=== PATIENT | male | born 1990 | race Caucasian/White ===

== ENCOUNTER 2023-12-13 13:08 | Emergency (ER) | payer OTHER ==
[~2023-12-13] VITALS: Ht 180.3 cm; Wt 75.0 kg
[2023-12-13 15:37] VITALS: BP 126/82
[2023-12-13] MEDS: KETOROLAC TROMETH 30 MG/ML 1ML VIAL IM ONE (15:56)
[2023-12-13 16:13] VITALS: PULSE 68; RESP 16; O2SAT 100
[2023-12-13] MEDS ORDERED: HYDR-4902 PO (16:18)
== END 2023-12-13 16:42 | disposition home or self-care (01) ==
LOC: ER 13:08
DX: S92.252A Displaced fracture of navicular [scaphoid] of left foot, initial encounter for closed fracture (principal); W22.8XXA Striking against or struck by other objects, initial encounter; Y93.89 Activity, other specified; Y92.89 Other specified places as the place of occurrence of the external cause; Y99.8 Other external cause status
CPT/HCPCS: 29515; 73610; 73630; 96372; 99284; J1885

== ENCOUNTER 2025-02-19 13:08 | Emergency (ER) | payer SELFPAY ==
[~2025-02-19] VITALS: Ht 180.3 cm; Wt 77.2 kg
[~2025-02-19 13:08] MED LIST: HYDR-4902 PO
[2025-02-19 13:18] VITALS: TEMP 98.2
[2025-02-19] MEDS: DONNATAL 5ml ORAL Elix (BELLADONNA ALK-PHENOBARB) PO ONE (13:30)
[2025-02-19] MEDS: MAALOX PLUS or MAALOX 30 ML PO ONE (13:30)
[2025-02-19] MEDS: PROCHLORPERAZINE MALEATE 10 MG TAB PO ONE (13:30)
[2025-02-19] MEDS: LIDOCAINE VISCOUS 2% 15ML UD PO ONE (13:30)
--- NOTE | 2025-02-19 13:33 | ED.PDOC ---
GI ASSESSMENT HPI Comments 34-year-old male with PMHx GERD presents with a chief complaint of abdominal pain with associated nausea and vomiting. Patient states that his pain is localized to his epigastric region, nonradiating, describes as cramping, and rates his pain a 8/10. Patient mentions that he has been feeling nauseated, and has had one episode of vomiting. Patient is not actively vomiting at assessment. Chief Complaint: Abdominal Pain Time Seen by MD: 13:23 Primary Care Provider: NONE Reviewed Notes: Medications, Allergies Allergies: Coded Allergies: NO KNOWN ALLERGIES (Unverified , 02/19/25) Home Meds Active Scripts Hydrocodone-Acetaminophen (Hydrocodone Bitartrate/AC 5-325 mg) 1 Tab Tab, 1 TAB PO Q6HP PRN for 5 Days, #12 TAB Prov:URSULA FARIA CYNDI 12/13/23 Information Source: Patient Mode of Arrival: Ambulatory Timing: Hours Duration: Since onset Prehospital treatment: None Quality: Aching Vomitus: Food Particles Stool: Normal Severity: Moderate Recent: None Recent Hx of: None Pain Location: Epigastric Associated sign and symptoms: Nausea, Vomiting, Abdominal Pain Past Medical History PAST MEDICAL HISTORY: Denies Surgical History: Denies all surgeries Family History Family History: Reviewed,noncontributory to illness, No family hx of Cancer, No family hx of DM, No family hx of Heart cesar, No family hx of HTN, No family hx ofKidney cesar, No family hx of Liver cesar, No family hx of Lung cesar, No family hx of Stroke Social History Smoker: Non-Smoker Alcohol: Denies ETOH Use Drugs: Denies Drug Use Constitutional: denies: chills, diaphoresis, fatigue, fever, malaise, sweats, weakness, others EENTM: denies: blurred vision, double vision, ear bleeding, ear discharge, ear drainage, ear pain, ear ringing, eye pain, eye redness, hearing loss, mouth pain, mouth swelling, nasal discharge, nose bleeding, nose congestion, nose pain, photophobia, tearing, throat pain, throat swelling, voice changes, others Respiratory: denies: cough, hemoptysis, orthopnea, SOB at rest, shortness of breath, SOB with excertion, stridor, wheezing, others Cardiovascular: denies: chest pain, dizzy spells, diaphoresis, Dyspnea on exertion, edema, irregular heart beat, left arm pain, lightheadedness, palpitations, PND, syncope, others Gastrointestinal: reports: abdominal pain, nausea, vomiting; denies: abdomen distended, blood streaked bowels, constipated, diarrhea, dysphagia, difficulty swallowing, hematemesis, melena, poor appetite, poor fluid intake, rectal bleeding, rectal pain, others Genitourinary: denies: burning, dysuria, flank pain, frequency, hematuria, incontinence, penile discharge, penile sore, pain, testicle pain, testicle swelling, urgency, others Neurological: denies: dizziness, fainting, headache, left sided numbness, left sided weakness, numbness, paresthesia, pre-existing deficit, right sided numbness, right sided weakness, seizure, speech problems, tingling, tremors, weakness, others Musculoskeletal: denies: back pain, gout, joint pain, joint swelling, muscle pain, muscle stiffness, neck pain, others Integumetry: denies: bruises, change in color, change in hair/nails, dryness, laceration, lesions, lumps, rash, wounds, others Allergic/Immunocompromised: denies: Difficulty Healing, Frequent Infections, Hives, Itching, others Hematologic/Lymphatic: denies: anemia, blood clots, easy bleeding, easy bruising, swollen glands, others Endocrine: denies: excessive hunger, excessive sweating, excessive thirst, excessive urination, flushing, intolerance to cold, intolerance to heat, une xplained weight gain, unexplained weight loss, others Psychiatric: denies: anxiety, bipolar disorder, depression, hopeless, panic disorder, schizophrenia, sleepless, suicidal, others All Other Systems: Reviewed and Negative Physical Exam General Appearance: No Apparent Distress, Normal HEENT: Normal ENT Inspection, PERRL/EOMI, Pharynx Normal, TMs Normal Neck: Full Range of Motion, Non-Tender, Normal, Normal Inspection Respiratory: Chest Non-Tender, Lungs Clear, No Accessory Muscle Use, No Re spiratory Distress, Normal Breath Sounds Cardiovascular: No Edema, No JVD, No Murmur, No Gallop, Normal Peripheral Pulses, Regular Rate/Rhythm Breast Exam: Deferred Gastrointestinal: Epigastric, No Organomegaly, No Pulsatile Mass, Normal Bowel Sounds, Soft, Tenderness Genitalia: Deferred Pelvic: Deferred Rectal: Deferred Extremities: No calf tenderness, Normal capillary refill, Normal inspection, Normal range of motion, Non-tender, No pedal edema Musculoskeletal : Apperance: Normal Neurologic: Alert, masonry inspector II-XII nml as Tested, No Motor Deficits, Normal Affect, Normal Mood, No Sensory Deficits Cerebellar Function: Normal Reflexes: Normal Skin: Dry, Normal Color, Warm Peripheral Pulses: 1+ carotid (R), 1+ carotid (L) Lymphatic: No Adenopathy Was a procedure done? Was a procedure done?: No GI differential Dx Differential Diagnosis: Gastritis/PUD, Gastroenteritis, Pancreatitis, UTI, Dehydration, Drug toxicity, Electrolyte Imbalance, Anemia X-Ray, Labs, Meds, VS Vital Signs Date Time Temp Pulse Resp B/P (MAP) Pulse Ox O2 Delivery O2 Flow Rate FiO2 02/19/25 15:05 75 18 122/87 (99) 97 02/19/25 15:05 77 18 98 Room Air 02/19/25 13:18 98.2 99 16 133/99 96 98.2 Lab Test 02/19/25 14:10 02/19/25 13:37 Range/Units Urine Color Yellow Yellow Urine Clarity Clear Clear Urine pH 6.0 5.0-9.0 Urine Specific [place] 1.032 1.001-1.035 Urine Protein Trace H Negative Urine Ketones Trace Negative Urine Blood Negative Negative /uL Urine Nitrite Negative Negative Urine Bilirubin Negative Negative Urine Urobilinogen Normal Negative mg/dL Urine Leukocyte Esterase Negative Negative /uL Urine RBC None seen 0 - 3 /hpf Urine Microscopic WBC 2 0-3 /HPF Urine Squamous Epithelial Cells None seen <5 /hpf Urine Bacteria None seen None Seen /hpf Urine Mucus Few None Seen Urine Glucose Normal Normal mg/dL Urine Opiates Screen Neg NEGATIVE Urine Fentanyl Screen Neg NEGATIVE Urine Barbiturates Screen Neg NEGATIVE Urine Phencyclidine Screen Neg NEGATIVE Urine Amphetamines Screen Neg NEGATIVE Urine Benzodiazepines Screen Neg NEGATIVE Urine Cocaine Screen Neg NEGATIVE Urine Cannabinoids Screen Pos NEGATIVE White Blood Count 7.3 4.4-10.8 10^3/uL Red Blood Count 5.04 4.5-5.90 10^6/uL Hemoglobin 15.4 13.5-17.5 g/dL Hematocrit 44.8 41.0-53.0 % Mean Corpuscular Volume 88.9 80.0-100.0 fL Mean Corpuscular Hemoglobin 30.5 28.0-32.0 pg Mean Corpuscular Hemoglobin Concent 34.4 32.0-36.0 g/dL Red Cell Distribution Width 13.1 11.8-14.3 % Platelet Count 265 140-450 10^3/uL Mean Platelet Volume 8.2 6.9-10.8 fL Neutrophils (%) (Auto) 64.8 37.0-80.0 % Lymphocytes (%) (Auto) 26.7 10.0-50.0 % Monocytes (%) (Auto) 5.7 0.0-12.0 % Eosinophils (%) (Auto) 2.1 0.0-7.0 % Basophils (%) (Auto) 0.7 0.0-2.0 % Neutrophils # (Auto) 4.7 1.6-8.6 10 ^3/uL Lymphocytes # (Auto) 2.0 0.4-5.4 10 ^3/uL Monocytes # (Auto) 0.4 0-1.3 10 ^3/uL Eosinophils # (Auto) 0.2 0-0.8 10 ^3/uL Basophils # (Auto) 0.1 0-0.2 10 ^3/uL Nucleated Red Blood Cells 0.0 % Sodium Level 141 136-145 mmol/L Potassium Level 3.7 3.5-5.1 mmol/L Chloride Level 105 98-107 mmol/L Carbon Dioxide Level 27 20-31 mmol/L Anion Gap 9 5-15 Blood Urea Nitrogen 17 9-23 mg/dL Creatinine 1.10 0.700-1.30 mg/dL Glomerular Filtration Rate Calc 89 >90 mL/min BUN/Creatinine Ratio 15.5 10.0-20.0 Serum Glucose 100 74-106 mg/dL Calcium Level 9.9 8.7-10.4 mg/dL Magnesium Level 1.8 1.6-2.6 mg/dL Lipase 37 12-53 U/L X-Ray, Labs, Meds, VS Comment Course in the emergency department eventful patient came in complaining of abdominal pain with nausea and vomiting Urine is negative UDS is positive for marijuana CBC normal BNP normal Lipase 37 Magnesium 1.8 Patient will be discharged home to follow up with his PCP Time of 1ST Reevaluation: 13:53 Reevaluation 1ST: Unchanged Patient Education/Counseling: Diagnosis, Treatment Family Education/Counseling: No Family Present SEPSIS Sepsis Screen Date sepsis recognized/suspect: Feb 19, 2025 Time Sepsis recognized/suspect: 1318 Recent Procedure: No On Antibiotic Therapy: No Respiratory Rate >20: No Heart Rate >90: No Temp<36 C (96.8 F) or >38.3 C: No SBP <90 or MAP <65 mmHG: No New Acute Mental Status Change: No Is the patient on CPAP, BIPAP,: No Vital Signs Date Time Temp Pulse Resp B/P (MAP) Pulse Ox O2 Delivery O2 Flow Rate FiO2 02/19/25 15:05 75 18 122/87 (99) 97 02/19/25 15:05 77 18 98 Room Air 02/19/25 13:18 98.2 99 16 133/99 96 98.2 Laboratory Tests Test 02/19/25 13:37 White Blood Count 7.3 10^3/uL (4.4-10.8) Departure 1 Departure Time of Disposition: 15:12 Impression: Primary Impression: Cannabinoid hyperemesis syndrome Disposition: HOME / SELF CARE / HOMELESS Condition: Fair Additional Instructions: Push fluids and you need to stop smoking marijuana e-Prescriptions Omeprazole (Gnp Omeprazole) 20 Mg Tab 1 TAB PO BID for 5 Days, #10 TAB 1 Refill Prov: MONICA RUTH MD 02/19/25 Prochlorperazine Maleate (Compazine) 10 Mg Tb 1 TAB PO Q6HR for 5 Days, #20 TAB 3 Refills Prov: MONICA RUTH MD 02/19/25 Discharged With: Self Critical Care Note Critical Care Time?: No Stability Stability form required: No Heart Score Heart Score: Heart Score Response (Comments) Value History N/A 0 EKG N/A 0 Age <45 0 Risk Factors No known risk factors 0 Troponin N/A 0 Total 0 I personally scribed for MONICA RUTH MD ([email or web address]) on 02/19/25 at 13:33. Electronically submitted by Anselmo Quach ([email or web address]). MONICA RUTH MD Feb 19, 2025 13:33
[2025-02-19 13:49] LABS: Hematocrit 44.8 % (41.0-53.0); Hemoglobin 15.4 g/dL (13.5-17.5); Mean Corpuscular Hemoglobin 30.5 pg (28.0-32.0); Mean Corpuscular Volume 88.9 fL (80.0-100.0); Nucleated Red Blood Cells % 0.0 %
[2025-02-19 13:55] LABS: Anion Gap 9 (5-15); Carbon Dioxide 27 mmol/L (20-31); Chloride 105 mmol/L (98-107); Potassium 3.7 mmol/L (3.5-5.1); Sodium 141 mmol/L (136-145)
[2025-02-19 13:56] LABS: Calcium 9.9 mg/dL (8.7-10.4)
[2025-02-19 14:00] LABS: Glucose 100 mg/dL (74-106)
[2025-02-19 14:01] LABS: BUN/Creatinine Ratio 15.5 (10.0-20.0); Blood Urea Nitrogen 17 mg/dL (9-23); Lipase 37 U/L (12-53); Magnesium 1.8 mg/dL (1.6-2.6)
[2025-02-19 14:33] LABS: Urine Protein, UAD TRACE (Negative)
[2025-02-19 14:42] LABS: Cannabinoid Screen, Urine Pos (NEGATIVE)
[2025-02-19 14:43] LABS: Amphetamine Screen, Urine Neg (NEGATIVE); Barbiturate Scree,Urine Neg (NEGATIVE); Benzodiazephine Screen, Urine Neg (NEGATIVE); Cocaine Screen, Urine Neg (NEGATIVE); Opiate Scree,Urine Neg (NEGATIVE); Phencyclidine Screen, Urine Neg (NEGATIVE)
[2025-02-19 15:05] VITALS: BP 122/87; PULSE 77; RESP 18; O2SAT 98
[2025-02-19] MEDS ORDERED: OMEP20TA PO (15:21)
[2025-02-19] MEDS ORDERED: PROC10TA6 PO (15:21)
== END 2025-02-19 15:35 | disposition home or self-care (01) ==
LOC: ER 13:08
DX: F12.188 Cannabis abuse with other cannabis-induced disorder (principal); Z79.899 Other long term (current) drug therapy
CPT/HCPCS: 36415; 80048; 80307; 81001; 83690; 83735; 85025; 99284; Q0164

== ENCOUNTER 2025-04-11 08:22 | Inpatient (IN) | payer MEDICAID, OTHER ==
[2025-04-11] VITALS (7 sets, daily range): BP systolic 124–144; BP diastolic 73–100; PULSE 64–74; RESP 16–18; TEMP 98.1–98.7; O2SAT 0–99
[~2025-04-11] VITALS: Ht 180.3 cm; Wt 92.7 kg
[~2025-04-11 08:22] MED LIST changes: +OMEP20TA PO; +PROC10TA6 PO
--- NOTE | 2025-04-11 08:38 | ED.PDOC ---
GI ASSESSMENT HPI Comments 34 y.o male presents to the ED for a chief complaint of nausea and vomiting waking him up this morning. Patient reports states vomiting about 4-5 times with the past two episodes containing bright red chunks of blood. Patient reports abdominal discomfort as well and is notably tender on palpation during examination to the mid abdomen region. He denies any fever, chills, diarrhea, constipation, sweats, rectal bleeding or hx of gastritis. Patient states undergoing multiple family stress factors. He denies having any food prior to vomiting which he described as clear prior to noting blood. Chief Complaint: Nausea/Vomiting Time Seen by MD: 08:30 Primary Care Provider: NONE Reviewed Notes: Nurses Notes, Medications, Allergies Allergies: Coded Allergies: Ibuprofen (Verified Allergy, Unknown, 04/11/25) Home Meds Active Scripts Omeprazole (Gnp Omeprazole) 20 Mg Tab, 1 TAB PO BID for 5 Days, #10 TAB 1 Refill Prov:MONICA RUTH MD 02/19/25 Prochlorperazine Maleate (Compazine) 10 Mg Tb, 1 TAB PO Q6HR for 5 Days, #20 TAB 3 Refills Prov:MONICA RUTH MD 02/19/25 Hydrocodone-Acetaminophen (Hydrocodone Bitartrate/AC 5-325 mg) 1 Tab Tab, 1 TAB PO Q6HP PRN for 5 Days, #12 TAB Prov:URSULA FARIA 12/13/23 Information Source: Patient Mode of Arrival: Ambulatory Timing: Hours Duration: Since onset Quality: Aching, Burning Vomitus: Soft, Bloody Stool: Normal Severity: Moderate Recent: None Recent Hx of: None Pain Location: Periumbilical Modifying Factors: Nothing Associated sign and symptoms: Nausea, Vomiting, Hematemesis, Abdominal Pain Past Medical History PAST MEDICAL HISTORY: Denies Surgical History: Appendectomy, Hernia Repair Family History Family History: Reviewed,noncontributory to illness, No family hx of Cancer, No family hx of DM, No family hx of Heart cesar, No family hx of HTN, No family hx ofKidney cesar, No family hx of Liver cesar, No family hx of Lung cesar, No family hx of Stroke Social History Smoker: Non-Smoker Alcohol: Denies ETOH Use Drugs: Denies Drug Use Lives In: Home Constitutional: denies: chills, diaphoresis, fatigue, fever, malaise, sweats, weakness, others EENTM: denies: blurred vision, double vision, ear bleeding, ear discharge, ear drainage, ear pain, ear ringing, eye pain, eye redness, hearing loss, mouth pain, mouth swelling, nasal discharge, nose bleeding, nose congestion, nose pain, photophobia, tearing, throat pain, throat swelling, voice changes, others Respiratory: denies: cough, hemoptysis, orthopnea, SOB at rest, shortness of breath, SOB with excertion, stridor, wheezing, others Cardiovascular: denies: chest pain, dizzy spells, diaphoresis, Dyspnea on exertion, edema, irregular heart beat, left arm pain, lightheadedness, palpitations, PND, syncope, others Gastrointestinal: reports: abdominal pain, hematemesis, nausea, vomiting; denies: abdomen distended, blood streaked bowels, constipated, diarrhea, dysphagia, difficulty swallowing, melena, poor appetite, poor fluid intake, rect al bleeding, rectal pain, others Genitourinary: denies: burning, dysuria, flank pain, frequency, hematuria, incontinence, penile discharge, penile sore, pain, testicle pain, testicle swelling, urgency, others Neurological: denies: dizziness, fainting, headache, left sided numbness, left sided weakness, numbness, paresthesia, pre-existing deficit, right sided numbness, right sided weakness, seizure, speech problems, tingling, tremors, weakness, others Musculoskeletal: denies: back pain, gout, joint pain, joint swelling, muscle pain, muscle stiffness, neck pain, others Integumetry: denies: bruises, change in color, change in hair/nails, dryness, laceration, lesions, lumps, rash, wounds, others Allergic/Immunocompromised: denies: Difficulty Healing, Frequent Infections, Hives, Itching, others Hematologic/Lymphatic: denies: anemia, blood clots, easy bleeding, easy bruising, swollen glands, others Endocrine: denies: excessive hunger, excessive sweating, excessive thirst, excessive urination, flushing, intolerance to cold, intolerance to heat, unexplained weight gain, unexplained weight loss, others Psychiatric: denies: anxiety, bipolar disorder, depression, hopeless, panic disorder, schizophrenia, sleepless, suicidal, others All Other Systems: Reviewed and Negative Physical Exam General Appearance: Moderate Distress HEENT: Normal ENT Inspection, Pharynx Normal, TMs Normal Neck: Full Range of Motion, Non-Tender, Normal, Normal Inspection Respiratory: Chest Non-Tender, Lungs Clear, No Accessory Muscle Use, No Respiratory Distress, Normal Breath Sounds Cardiovascular: No Edema, No JVD, No Murmur, No Gallop, Normal Peripheral Pulses, Regular Rate/Rhythm Breast Exam: Deferred Gastrointestinal: Epigastric Genitalia: Deferred Pelvic: Deferred Rectal: Deferred Extremities: No calf tenderness, Normal capillary refill, Normal inspection, Normal range of motion, Non-tender, No pedal edema Musculoskeletal : Apperance: Normal Neurologic: Alert, vp communications II-XII nml as Tested, No Motor Deficits, Normal Affect, Normal Mood, No Sensory Deficits Cerebellar Function: Normal Reflexes: Normal Skin: Dry, Normal Color, Warm Peripheral Pulses: 3+ Radial (R), 3+ Radial (L) Lymphatic: No Adenopathy Was a procedure done? Was a procedure done?: No GI differential Dx Differential Diagnosis: Constipation, Diverticular disease, Esophagitis, Gastritis/PUD, Gastroenteritis, Dehydration, Esophageal Varicies, Stress Ulcer X-Ray, Labs, Meds, VS Vital Signs Date Time Temp Pulse Resp B/P (MAP) Pulse Ox O2 Delivery O2 Flow Rate FiO2 04/11/25 10:35 97 Room Air* 0 21 04/11/25 10:27 70 16 97 Room Air* 0 21 04/11/25 09:55 98.3 74 16 148/87 (107) 95 98.3 04/11/25 08:27 97.9 92 18 144/93 98 97.9 Lab Test 04/11/25 08:43 Range/Units White Blood Count 9.0 4.4-10.8 10^3/uL Red Blood Count 4.98 4.5-5.90 10^6/uL Hemoglobin 15.0 13.5-17.5 g/dL Hematocrit 43.9 41.0-53.0 % Mean Corpuscular Volume 88.3 80.0-100.0 fL Mean Corpuscular Hemoglobin 30.1 28.0-32.0 pg Mean Corpuscular Hemoglobin Concent 34.1 32.0-36.0 g/dL Red Cell Distribution Width 12.9 11.8-14.3 % Platelet Count 267 140-450 10^3/uL Mean Platelet Volume 8.9 6.9-10.8 fL Neutrophils (%) (Auto) 74.9 37.0-80.0 % Lymphocytes (%) (Auto) 18.6 10.0-50.0 % Monocytes (%) (Auto) 4.8 0.0-12.0 % Eosinophils (%) (Auto) 0.8 0.0-7.0 % Basophils (%) (Auto) 0.9 0.0-2.0 % Neutrophils # (Auto) 6.8 1.6-8.6 10 ^3/uL Lymphocytes # (Auto) 1.7 0.4-5.4 10 ^3/uL Monocytes # (Auto) 0.4 0-1.3 10 ^3/uL Eosinophils # (Auto) 0.1 0-0.8 10 ^3/uL Basophils # (Auto) 0.1 0-0.2 10 ^3/uL Nucleated Red Blood Cells 0.0 % Sodium Level 140 136-145 mmol/L Potassium Level 3.8 3.5-5.1 mmol/L Chloride Level 104 98-107 mmol/L Carbon Dioxide Level 24 20-31 mmol/L Anion Gap 12 5-15 Blood Urea Nitrogen 11 9-23 mg/dL Creatinine 0.90 0.700-1.30 mg/dL Glomerular Filtration Rate Calc 114 >90 mL/min BUN/Creatinine Ratio 12.2 10.0-20.0 Serum Glucose 103 74-106 mg/dL Calcium Level 9.6 8.7-10.4 mg/dL Current Medications Medications (Trade) Dose Ordered Sig/Latrice Route Start Time Stop Time Status Last Admin Sodium Chloride 1,000 ml @ 1,000 mls/hr Q1H ONCE IV 04/11/25 08:45 04/11/25 09:44 DC 04/11/25 10:04 Sodium Chloride 1,000 ml @ 150 mls/hr Q6H40M ONCE IV 04/11/25 08:45 04/11/25 15:24 04/11/25 10:04 Belladonna Alkaloids/ Phenobarbital ( Elixir) 10 ml ONCE ONCE PO 04/11/25 08:45 04/11/25 08:46 DC 04/11/25 10:04 Al Hydrox/Mg Hydrox/Simethicone (Maalox Plus) 30 ml ONCE ONCE PO 04/11/25 08:45 04/11/25 08:46 DC 04/11/25 10:04 Lidocaine HCl (Xylocaine 2% Viscous) 15 ml ONCE ONCE PO 04/11/25 08:45 04/11/25 08:46 DC 04/11/25 10:03 Patient alert. Came in because of vomiting of blood. Vitals stable. Answering questions. Abdomen is soft tender in the epigastric region. Was given GI cocktail. Establish intravenous access. Was given fluids. Explained to the patient. Continue monitoring. CLINICAL HISTORY: gastritis TECHNIQUE: CT of the abdomen and pelvis was performed without IV contrast. This exam was performed according to our departmental dose optimization program. Up-to-date CT equipment and radiation dose reduction techniques are utilized as appropriate. CTDI 7 DLP 358 COMPARISON: None FINDINGS: Abdomen/Pelvis: The spleen, pancreas, adrenal glands, gallbladder, kidneys, and prostate gland are grossly unremarkable. The bladder is not well distended therefore not well evaluated. There is diffuse hepatic steatosis. The abdominal aorta is normal in course and caliber. There are no significant atherosclerotic calcifications. There is no free intraperitoneal air or fluid. There is no enlarged abdominal pelvic lymph node. There is no bowel wall thickening or dilatation. The appendix is absent. Scattered submucosal fat within the colon is compatible with an old infe ctious/inflammatory process. Other: The imaged lower thorax is unremarkable. No acute osseous abnormality is evident. Impression: No acute noncontrast CT abnormality in the abdomen or pelvis. Diffuse hepatic steatosis. ATED BY: MIGUEL DEVINE MD Time of 1ST Reevaluation: 09:00 Reevaluation 1ST: Unchanged Patient Education/Counseling: Diagnosis, Treatment, Prognosis Family Education/Counseling: No Family Present SEPSIS Sepsis Screen Date sepsis recognized/suspect: Apr 11, 2025 Time Sepsis recognized/suspect: 827 Recent Procedure: No On Antibiotic Therapy: No Respiratory Rate >20: No Heart Rate >90: Yes Temp<36 C (96.8 F) or >38.3 C: No SBP <90 or MAP <65 mmHG: No New Acute Mental Status Change: No Is the patient on CPAP, BIPAP,: No Physician Orders Urinalysis (04/11/25 08:34) Sodium Chloride 0.9% (04/11/25 08:45) Ct Ab Pel Wo Con-No Oral Or Iv (04/11/25 08:34) Drug Screen (04/11/25 08:41) Vital Signs Date Time Temp Pulse Resp B/P (MAP) Pulse Ox O2 Delivery O2 Flow Rate FiO2 04/11/25 10:35 97 Room Air* 0 21 04/11/25 10:27 70 16 97 Room Air* 0 21 04/11/25 09:55 98.3 74 16 148/87 (107) 95 98.3 04/11/25 08:27 97.9 92 18 144/93 98 97.9 Laboratory Tests Test 04/11/25 08:43 White Blood Count 9.0 10^3/uL (4.4-10.8) Medications Medications Dose Ordered Sig/Latrice Route Start Time Stop Time Status Last Admin Dose Admin Al Hydrox/Mg Hydrox/Simethicone 30 ml ONCE ONCE PO 04/11/25 08:45 04/11/25 08:46 DC 04/11/25 10:04 Belladonna Alkaloids/ Phenobarbital 10 ml ONCE ONCE PO 04/11/25 08:45 04/11/25 08:46 DC 04/11/25 10:04 Lidocaine HCl 15 ml ONCE ONCE PO 04/11/25 08:45 04/11/25 08:46 DC 04/11/25 10:03 Sodium Chloride 1,000 ml @ 150 mls/hr Q6H40M ONCE IV 04/11/25 08:45 04/11/25 15:24 04/11/25 10:04 Sodium Chloride 1,000 ml @ 1,000 mls/hr Q1H ONCE IV 04/11/25 08:45 04/11/25 09:44 DC 04/11/25 10:04 Departure 1 Departure Time of Disposition: 08:40 Impression: Primary Impression: Acute gastritis Qualified Codes: K29.01 - Acute gastritis with bleeding Disposition: ADMITTED INPATIENT Admit to: Med Surg Condition: Guarded Critical Care Note Critical Care Time?: No Stability Stability form required: No I personally scribed for GRETA BURROWS MD ([email or web address]) on 04/11/25 at 08:38. Electronically submitted by Marie Navarrete ([facility]). I personally scribed for GRETA BURROWS MD ([email or web address]) on 04/11/25 at 10:51. Electronically submitted by Marie Navarrete ([facility]). GRETA BURROWS MD Apr 11, 2025 08:38
[2025-04-11 09:05] LABS: Chloride 104 mmol/L (98-107); Potassium 3.8 mmol/L (3.5-5.1); Sodium 140 mmol/L (136-145)
[2025-04-11 09:06] LABS: Calcium 9.6 mg/dL (8.7-10.4)
[2025-04-11 09:08] LABS: Hematocrit 43.9 % (41.0-53.0); Hemoglobin 15.0 g/dL (13.5-17.5); Mean Corpuscular Hemoglobin 30.1 pg (28.0-32.0); Mean Corpuscular Volume 88.3 fL (80.0-100.0); Nucleated Red Blood Cells % 0.0 %
[2025-04-11 09:11] LABS: BUN/Creatinine Ratio 12.2 (10.0-20.0); Blood Urea Nitrogen 11 mg/dL (9-23); Glucose 103 mg/dL (74-106)
--- NOTE | 2025-04-11 09:30 | DVH ---
CLINICAL HISTORY: gastritis TECHNIQUE: CT of the abdomen and pelvis was performed without IV contrast. This exam was performed ac cording to our departmental dose optimization program. Up-to-date CT equipment and radiation dose red uction techniques are utilized as appropriate. CTDI 7 DLP 358 COMPARISON: None FINDINGS: Abdomen/Pelvis: The spleen, pancreas, adrenal glands, gallbladder, kidneys, and prostate gland are grossly unremarkab le. The bladder is not well distended therefore not well evaluated. There is diffuse hepatic steatosis. The abdominal aorta is normal in course and caliber. There are no significant atherosclerotic calcifi cations. There is no free intraperitoneal air or fluid. There is no enlarged abdominal pelvic lymph node. There is no bowel wall thickening or dilatation. The appendix is absent. Scattered submucosal fat wit hin the colon is compatible with an old infectious/inflammatory process. Other: The imaged lower thorax is unremarkable. No acute osseous abnormality is evident. Impression: No acute noncontrast CT abnormality in the abdomen or pelvis. Diffuse hepatic steatosis.
[2025-04-11 09:52] LABS: Anion Gap 12 (5-15); Carbon Dioxide 24 mmol/L (20-31)
[2025-04-11] MEDS: LIDOCAINE VISCOUS 2% 15ML UD PO ONE (10:03)
[2025-04-11] MEDS: SODIUM CHLORIDE 0.9% 1,000 ML IV ONE ×2 (10:04)
[2025-04-11] MEDS: DONNATAL 5ml ORAL Elix (BELLADONNA ALK-PHENOBARB) PO ONE (10:04)
[2025-04-11] MEDS: MAALOX PLUS or MAALOX 30 ML PO ONE (10:04)
[2025-04-11] MEDS: DONNATAL 5ml ORAL Elix (BELLADONNA ALK-PHENOBARB) ONE (10:05)
--- NOTE | 2025-04-11 11:51 | DVHHP2 ---
History of Present Illness Reason for Visit: Intractable abdominal pain with nausea and vomiting History of Present Illness Oswaldo Estrella is a 34-year-old male with past medical history of left varicose vein surgery, left arm surgery with metal, appendectomy and hernia repair who presents to the ED with abdominal pain, nausea, and vomiting that started this morning. Patient reports that he has been having abdominal pain for the last 5 years. He reports that he also got a colonoscopy 5 years ago and it was normal. He does state that he was taking omeprazole but it is not working. He is complaining of burning irritation in his esophagus. Patient reports that he vomited 4-5 times and with 2 of them having chunks of bright red blood. Patient also endorses that for the last 6 months he has been having bloody stools with clots in the toilet and when he wipes. He states that the last 1 being today. Patient states he is unsure if he has hemorrhoids. Patient also reports that he has been going through a lot of stress, separation, in custody rosas. Patient reports that he went to [place] in November. Patient denies any recent trauma or injury, recent sick contacts, recent ingestion of spoiled food, chest pain, shortness of breath, fever, chills, lightheadedness, weakness, dizziness, diarrhea or urinary symptoms. Past Surgical History: Appendectomy, Hernia Repair, Other (Left arm surgery and left varicose vein surgery) Family History: None Smoke: No ALCOHOL: none Drugs: None Lives: with Family Domestic Violence: Neg Review of Systems Gastrointestinal: Nausea, Vomiting, Abdominal Pain, Other (Hematemesis) Allergies: Coded Allergies: Ibuprofen (Verified Allergy, Unknown, 04/11/25) Exam Vital Signs Vital Signs Date Time Temp Pulse Resp B/P (MAP) Pulse Ox O2 Delivery O2 Flow Rate FiO2 04/11/25 10:35 97 Room Air* 0 21 04/11/25 10:27 70 16 04/11/25 09:55 98.3 148/87 (107) 98.3 General Appearance: Alert, Oriented X3, Cooperative, No acute distress HEENT: Atraumatic, PERRLA, EOMI, Mucous membr. moist/pink Respiratory: Clear to auscultation, Normal air movement Cardiovascular: Regular rate, Normal S1, Normal S2, No murmurs Abdominal: Normal bowel sounds, Soft Extremities: No clubbing, No cyanosis, Normal pulses Skin: No significant lesion Neuro: Normal gait, Normal speech, Strength at 5/5 X4 ext, Normal tone, Sensa tion intact Psych/Mental Status: Mental status NL, Mood NL Labs/Xrays Labs Test 04/11/25 08:43 Range/Units White Blood Count 9.0 4.4-10.8 10^3/uL Red Blood Count 4.98 4.5-5.90 10^6/uL Hemoglobin 15.0 13.5-17.5 g/dL Hematocrit 43.9 41.0-53.0 % Mean Corpuscular Volume 88.3 80.0-100.0 fL Mean Corpuscular Hemoglobin 30.1 28.0-32.0 pg Mean Corpuscular Hemoglobin Concent 34.1 32.0-36.0 g/dL Red Cell Distribution Width 12.9 11.8-14.3 % Platelet Count 267 140-450 10^3/uL Mean Platelet Volume 8.9 6.9-10.8 fL Neutrophils (%) (Auto) 74.9 37.0-80.0 % Lymphocytes (%) (Auto) 18.6 10.0-50.0 % Monocytes (%) (Auto) 4.8 0.0-12.0 % Eosinophils (%) (Auto) 0.8 0.0-7.0 % Basophils (%) (Auto) 0.9 0.0-2.0 % Neutrophils # (Auto) 6.8 1.6-8.6 10 ^3/uL Lymphocytes # (Auto) 1.7 0.4-5.4 10 ^3/uL Monocytes # (Auto) 0.4 0-1.3 10 ^3/uL Eosinophils # (Auto) 0.1 0-0.8 10 ^3/uL Basophils # (Auto) 0.1 0-0.2 10 ^3/uL Nucleated Red Blood Cells 0.0 % Sodium Level 140 136-145 mmol/L Potassium Level 3.8 3.5-5.1 mmol/L Chloride Level 104 98-107 mmol/L Carbon Dioxide Level 24 20-31 mmol/L Anion Gap 12 5-15 Blood Urea Nitrogen 11 9-23 mg/dL Creatinine 0.90 0.700-1.30 mg/dL Glomerular Filtration Rate Calc 114 >90 mL/min BUN/Creatinine Ratio 12.2 10.0-20.0 Serum Glucose 103 74-106 mg/dL Calcium Level 9.6 8.7-10.4 mg/dL CLINICAL HISTORY: gastritis TECHNIQUE: CT of the abdomen and pelvis was performed without IV contrast. This exam was performed according to our departmental dose optimization program. Up-to-date CT equipment and radiation dose reduction techniques are utilized as appropriate. CTDI 7 DLP 358 COMPARISON: None FINDINGS: Abdomen/Pelvis: The spleen, pancreas, adrenal glands, gallbladder, kidneys, and prostate gland are grossly unremarkable. The bladder is not well distended therefore not well evaluated. There is diffuse hepatic steatosis. The abdominal aorta is normal in course and caliber. There are no significant atherosclerotic calcifications. There is no free intraperitoneal air or fluid. There is no enlarged abdominal pelvic lymph node. There is no bowel wall thickening or dilatation. The appendix is absent. Scattered submucosal fat within the colon is compatible with an old infectious/inflammatory process. Other: The imaged lower thorax is unremarkable. No acute osseous abnormality is evident. Impression: No acute noncontrast CT abnormality in the abdomen or pelvis. Diffuse hepatic steatosis. SEPSIS Sepsis Screen Date sepsis recognized/suspect: Apr 11, 2025 Time Sepsis recognized/suspect: 1034 Recent Procedure: No On Antibiotic Therapy: No Respiratory Rate >20: No Heart Rate >90: No Temp<36 C (96.8 F) or >38.3 C: No SBP <90 or MAP <65 mmHG: No New Acute Mental Status Change: No Is the patient on CPAP, BIPAP,: No Physician Orders Urinalysis (04/11/25 08:34) Sodium Chloride 0.9% (04/11/25 08:45) Ct Ab Pel Wo Con-No Oral Or Iv (04/11/25 08:34) Drug Screen (04/11/25 08:41) Vital Signs Date Time Temp Pulse Resp B/P (MAP) Pulse Ox O2 Delivery O2 Flow Rate FiO2 04/11/25 10:35 97 Room Air* 0 21 04/11/25 10:27 70 16 97 Room Air* 0 21 04/11/25 09:55 98.3 74 16 148/87 (107) 95 98.3 04/11/25 08:27 97.9 92 18 144/93 98 97.9 Laboratory Tests Test 04/11/25 08:43 White Blood Count 9.0 10^3/uL (4.4-10.8) Medications Medications Dose Ordered Sig/Latrice Route Start Time Stop Time Status Last Admin Dose Admin Al Hydrox/Mg Hydrox/Simethicone 30 ml ONCE ONCE PO 04/11/25 08:45 04/11/25 08:46 DC 04/11/25 10:04 30 ML Belladonna Alkaloids/ Phenobarbital 10 ml ONCE ONCE PO 04/11/25 08:45 04/11/25 08:46 DC 04/11/25 10:04 10 ML Lidocaine HCl 15 ml ONCE ONCE PO 04/11/25 08:45 04/11/25 08:46 DC 04/11/25 10:03 15 ML Sodium Chloride 1,000 ml @ 150 mls/hr Q6H40M ONCE IV 04/11/25 08:45 04/11/25 15:24 04/11/25 10:04 150 MLS/HR Sodium Chloride 1,000 ml @ 1,000 mls/hr Q1H ONCE IV 04/11/25 08:45 04/11/25 09:44 DC 04/11/25 10:04 1,000 MLS/HR Assessment/Plan Assessment/Plan Assessment Intractable abdominal pain with nausea and vomiting rule out GI bleed ?Gastritis Diffuse hepatic steatosis ?Anxiety ?GERD History of appendectomy History of hernia repair History of left arm surgery History of left varicose vein surgery Plan Admit to med surge Trend H&H Stool OB Iron panel Haptoglobin Gabi Reticulocyte count Vitamin-B and D level Folate Antiemetics Pain management NS 2 L given in ED UA UDS CT abdomen pelvis noted Diet Home medications reconciled DVT prophylaxis-SCDs PUD prophylaxis-PPIs Discussed plan of care with patient and nurse Consider GI consult if H&H trends down [id number] Preventive counseling healthy eating habits, physical activity, and regular checkups Plan discussed with: Patient Date of Service: Apr 11, 2025 Billing Provider: YOHANA NESBITT Common Visit Codes: [id number] INP/OBS CARE (HIGH) Secondary Visit Codes: [id number] COUNSELING IND YOHANA NESBITT Apr 11, 2025 11:51
[2025-04-11] MEDS ORDERED: ACETAMINOPHEN 325 MG TAB PO PRN (12:00)
[2025-04-11] MEDS: HYDROcodone-ACET 5/325MG TAB PO PRN (13:17)
[2025-04-11] MEDS: ONDANSETRON HCL 4 MG/2 ML VIAL IV PRN (13:18)
[2025-04-11 13:20] LABS: Urine Protein, UAD Negative (Negative)
[2025-04-11 14:46] LABS: Amphetamine Screen, Urine Neg (NEGATIVE)
[2025-04-11 15:51] LABS: Iron 148.0 ug/dL (65-175)
[2025-04-11 15:54] LABS: Total Iron Binding Capacity 310.0 ug/dL (250-425)
[2025-04-11 19:13] LABS: Barbiturate Scree,Urine Neg (NEGATIVE)
[2025-04-11 19:23] LABS: Benzodiazephine Screen, Urine Neg (NEGATIVE); Cannabinoid Screen, Urine Pos (NEGATIVE); Opiate Scree,Urine Neg (NEGATIVE); Phencyclidine Screen, Urine Neg (NEGATIVE)
[2025-04-11 19:46] LABS: Cocaine Screen, Urine Neg (NEGATIVE)
[2025-04-11] MEDS: MORPHINE SULFATE INJ 2 MG/ml SYRG IV PRN (22:15)
[2025-04-12 01:00] VITALS: BP 114/78; PULSE 56; RESP 18; TEMP 98.2; O2SAT 99
[2025-04-12 05:00] VITALS: BP 128/95; PULSE 63; RESP 18; TEMP 98.1; O2SAT 98
[2025-04-12 06:30] LABS: Hematocrit 38.2 % (41.0-53.0); Hemoglobin 13.1 g/dL (13.5-17.5); Mean Corpuscular Hemoglobin 30.5 pg (28.0-32.0); Mean Corpuscular Volume 88.7 fL (80.0-100.0); Nucleated Red Blood Cells % 0.1 %
[2025-04-12 06:49] LABS: Alanine Aminotransferase 21 U/L (7-40); Albumin 3.8 g/dL (3.2-4.8); Alkaline Phosphatase 50 U/L (46-116); Anion Gap 9 (5-15); BUN/Creatinine Ratio 12.6 (10.0-20.0); Blood Urea Nitrogen 11 mg/dL (9-23); Calcium 8.7 mg/dL (8.7-10.4); Carbon Dioxide 25 mmol/L (20-31); Chloride 104 mmol/L (98-107); Glucose 90 mg/dL (74-106); Potassium 3.9 mmol/L (3.5-5.1); Sodium 138 mmol/L (136-145); Total Protein 6.0 g/dL (5.7-8.2)
[2025-04-12 06:50] LABS: Bilirubin, Total 0.7 mg/dL (0.2-1.0)
[2025-04-12 08:00] VITALS: PULSE 64; RESP 18; O2SAT 0
[2025-04-12 09:00] VITALS: BP 119/83; PULSE 69; RESP 12; TEMP 97.6; O2SAT 100
[2025-04-12] MEDS: PANTOPRAZOLE 40 MG/10 ML VIAL INJ IV SCH (09:28)
[2025-04-14 16:07] LABS: Vitamin D-2 25-Hydroxy <1.0 ng/mL (.); Vitamin D-3 25-Hydroxy 25 ng/mL (.)
== END 2025-04-12 10:30 | disposition left against medical advice (07) | DRG 241 ==
LOC: ER 08:22 → OVERFLOW 11:46 → CENTRAL 15:17
DX: K29.01 Acute gastritis with bleeding (principal); F41.9 Anxiety disorder, unspecified; K76.0 Fatty (change of) liver, not elsewhere classified; K21.9 Gastro-esophageal reflux disease without esophagitis; Z90.49 Acquired absence of other specified parts of digestive tract; Z88.6 Allergy status to analgesic agent
CPT/HCPCS: 36415; 74176; 80048; 80053; 80307; 81001; 82306; 82746; 83010; 83540; 83550; 84425; 85025; 85045; 86880; 96360; 96361; G0378; J2405; J2470